=== PATIENT | male | born 1980 | race Caucasian/White ===

== ENCOUNTER 2016-05-01 10:17 | Emergency (ER) | payer OTHER ==
[~2016-05-01] VITALS: Ht 162.6 cm; Wt 78.6 kg
[~2016-05-01 10:17] MED LIST: AZIT250T94 PO; BACTDS PO; CEPH-443 PO; FLUT16SP24 NASAL; NAPR-260 PO; UDROBAC PO
[2016-05-01 10:20] VITALS: Ht 162.6 cm; Wt 78.6 kg
[2016-05-01] MEDS ORDERED: LIDOCAINE 1%/EPI 30 ML INJ INJ ONE (12:00)
[2016-05-01] MEDS ORDERED: DIPHTH/TET/ACEL PERTUSS (ADULT) 0.5 ML VIAL IM* ONE (12:00)
[2016-05-01] MEDS ORDERED: LIDOCAINE 1%/EPI (MDV) 20 ML INJ INJ ONE (12:00)
[2016-05-01] MEDS ORDERED: CEPH-443 PO (12:03)
[2016-05-01] MEDS ORDERED: BACTDS PO (12:03)
--- NOTE | 2016-05-01 12:10 | ERD ---
ER Documentation Chief Complaint Date/Time DATE: 05/01/16 TIME: 12:05 Chief Complaint lower back abcess HPI 35 year old male presenting to the emergency department complaining of an abscess on the right buttock region that worsened today. Patient states the pain is moderate in severity. He states that he has had a reoccurring abscess here a couple times in the past. Patient denies any fever. He states that he may have been up-to-date on his tetanus shot couple years ago ROS All systems reviewed and are negative except as per history of present illness. Medications Home Meds Active Scripts Sulfamethoxazole-Trimethoprim* (Bactrim* DS) 800-160 Mg Tab, 1 TAB PO BID for 5 Days, TAB Prov:KENYA SELLERS PA-C 05/01/16 Cephalexin* (Keflex*) 500 Mg Capsule, 500 MG PO QID for 7 Days, CAP Prov:KENYA SELLERS PA-C 05/01/16 Naproxen* (Naprosyn*) 500 Mg Tablet, 500 MG PO BID Y for PAIN AND/OR INFLAMMATION, #30 TAB Prov:CARLITOS MCKAY PA-C 05/16/15 Cephalexin* (Keflex*) 500 Mg Capsule, 500 MG PO QID for 7 Days, CAP Prov:CARLITOS MCKAY PA-C 05/16/15 Sulfamethoxazole-Trimethoprim* (Bactrim* DS) 800-160 Mg Tab, 1 TAB PO BID for 7 Days, TAB Prov:CARLITOS MCKAY PA-C 05/16/15 Fluticasone Propionate* (Flonase* Nasal) 50 Mcg/Souris - 16 Gm Souris.susp, 1 SPRAY NASAL DAILY, #1 SPRAY TO EACH NOSTRIL Prov:ASHLEY MATOS DO 11/19/14 Guaifenesin-Codeine Phosphate* (Robitussin* AC) 5 Ml Syrup, 5 ML PO Q6H Y for COUGH, #8 OZ Prov:ASHLEY MATOS 11/19/14 Azithromycin* (Zithromax*) 250 Mg Tablet, 250 MG PO .ZPACK DIRECTED, #6 TAB TAKE 500 MG (2 TABS) THE FIRST DAY THEN 250 MG (1 TAB) DAYS 2-5 Prov:ASHLEY MATOS DO 11/19/14 Allergies Allergies: Coded Allergies: No Known Allergy (Unverified , 09/13/15) PMhx/Soc Medical and Surgical Hx: pt denies Medical Hx, pt denies Surgical Hx History of Surgery: No Anesthesia Reaction: No Hx Neurological Disorder: No Hx Respiratory Disorders: No Hx Cardiac Disorders: No Hx Psychiatric Problems: No Hx Miscellaneous Medical Probl: No Hx Alcohol Use: Yes Hx Substance Use: No Hx Tobacco Use: Yes Smoking Status: Unknown if ever smoked Physical Exam Vitals Vital Signs Date Time Temp Pulse Resp B/P Pulse Ox O2 Delivery O2 Flow Rate FiO2 05/01/16 10:20 98.1 67 20 121/60 99 Physical Exam General: WD/WN, in no apparent distress, non-toxic appearing HENT: NC/AT Eyes: Conjunctiva normal Neck: Supple Pulm: Clear to auscultation, normal labored breathing; no wheezing/rales/ rhonchi heard CV: Good capillary refill GI: Non-distended, no guarding Back: No masses Ext: No clubbing, cyanosis, or edema Neuro: Moves on all fours Skin: 2cm erythematous fluctuant papule with 2 cm surrounding erythema, no streaking Psych: Normal mood Results 24 hrs Current Medications Medications (Trade) Dose Ordered Sig/Patti Route PRN Reason Start Time Stop Time Status Last Admin Dose Admin Lidocaine/ Epinephrine (Xylocaine 1%/ Epi (Mdv) 20 ml) 20 ml ONCE ONCE INJ 05/01/16 12:00 05/01/16 12:00 DC Diphtheria/ Tetanus/Acell Pertussis (Adacel) 0.5 ml ONCE ONCE IM* 05/01/16 12:00 05/01/16 12:01 DC 05/01/16 12:02 Lidocaine/ Epinephrine (Xylocaine 1%/ Epi) 20 ml ONCE ONCE INJ 05/01/16 12:00 05/01/16 12:01 DC Procedures/MDM This is a 35-year-old male presenting to the emergency room with abscess and cellulitis on the right lower buttock. Patient states that this has reoccurred and numerous times in the past, I discussed with him that it is likely a sebaceous cyst and would need to follow-up with the gem setter after it has healed to get it removed. Patient was prepared for an incision and drainage in the ED without any complications. Prescription for Keflex and Bactrim was provided. There was no evidence of tendon or arterial damage. There was no evidence of osteomyelitis, lymphangitis, necrotizing fasciitis. Hemodynamically stable. Discussed two day wound check. return sooner if condition worsens. Patient understood and agreed with this plan. PROCEDURE NOTE: Verbal consent was obtained Wound was irrigated with normal saline Wound was cleansed with Betadine 4cc Lidocaine 1% with epinephrine was used as a local anesthetic #11 blade scalpel was used for a single 0.25cm incision. Copious drainage of purulence occurred Wound was irrigated with copious amount of normal saline fluids Wound packed with iodoform gauze strips Procedure tolerated without complications Wound dressed with sterile gauze. Departure Diagnosis: Primary Impression: Abscess Additional Impression: Cellulitis Site of cellulitis: buttock Qualified Code: L03.317 - Cellulitis of buttock Condition: Stable Patient Instructions: Abscess, Incision And Drainage, Sebaceous Cyst, Infected (I And D), Sebaceous Cyst Additional Instructions: Follow up in 2 days in your clinic for wound check. Take all medicines as directed. Return to this facility if you are not improving as expected. Call your primary care doctor TOMORROW for an appointment during the next 1-2 days.See the doctor sooner or return here if your condition worsens before your appointment time. KENYA SELLERS PA-C May 01, 2016 12:10
== END 2016-05-01 12:14 | disposition home or self-care (01) ==
LOC: FTE 10:17
DX: L02.31 Cutaneous abscess of buttock (principal); L03.317 Cellulitis of buttock; Z23 Encounter for immunization
CPT/HCPCS: 10061; 90471; 90715; Z7502; Z7610

== ENCOUNTER 2016-05-04 11:49 | Emergency (ER) | payer OTHER ==
[~2016-05-04] VITALS: Wt 81.5 kg
--- NOTE | 2016-05-04 19:14 | ERD ---
DATE OF SERVICE: 05/04/2016 HISTORY OF PRESENT ILLNESS: The patient is a 35-year-old male coming in for a wound check and absce ss I and D site on his right buttock. Patient was seen here, had I and D. Has been taking his anti biotics with no complications. He states that the pain has improved. He has had no fevers. Had pr ocedure done 4 days ago. PAST MEDICAL HISTORY: Denies medical problems. ALLERGIES TO MEDICATIONS: Denies. SURGICAL HISTORY: Denies. SOCIAL HISTORY: Denies. REVIEW OF SYSTEMS: A 12-point review of systems was done. Refer to HPI for positives. All other sy stems negative. PHYSICAL EXAMINATION VITAL SIGNS: Temperature is 97.3, pulse 77, blood pressure is 114/59, respiratory rate 18, O2 satur ation 98% on room air. Pain intensity of 4/10. GENERAL: The patient is well-appearing, well-nourished, no acute distress. HEENT: Atraumatic. Conjunctivae are pink. Pupils equal, round, and reactive to light. There is n o scleral. CHEST: No wheezes or rhonchi. HEART: Regular rate and rhythm. No murmurs, clicks, rubs or S4. SKIN: There is a healing abscess site noted on his right buttock. No surrounding erythema, no puru lence, no lymphatic streaking, no bleeding, no induration. EMERGENCY ROOM COURSE: Site was cleaned, and packing was removed. I did not feel there was indicat ion for new packing to be replaced. Bandage was applied. DIAGNOSIS: Incision and drainage of abscess check. No worsening infection. MEDICAL DECISION MAKING: I have a low suspicion for deep space tracking infection, low suspicion fo r sepsis, low suspicion for pilonidal, perirectal, or rectal abscess. DISCHARGE: The patient is discharged stable. Patient is told to continue taking his antibiotics as previously prescribed. The patient was told if symptoms progress or worsen, to return to the ER. All other questions answered at time of discharge. Discharge summary given at the time of departure . Patient understood and complied with plan. Dictated By: SWAPNIL STEIN/MARY Conf#: [id number] DID#: [id number]
== END 2016-05-04 14:11 | disposition home or self-care (01) ==
LOC: FTE 11:49
DX: Z48.01 Encounter for change or removal of surgical wound dressing (principal)
CPT/HCPCS: 99281